=== PATIENT | male | born 1985 | race Hispanic/Latino ===

== ENCOUNTER 2017-11-22 13:32 | Emergency (ER) | payer MEDICAID, OTHER ==
--- NOTE | 2017-11-22 14:57 | RAD ---
RIGHT WRIST 3 VIEWS: Date: 11/22/17 HISTORY: 32-year-old male with history of right hand and wrist pain after tripping and falling. FINDINGS: There is an irregular, minimally displaced fracture of the distal fifth metacarpal extending into the metacarpophalangeal joint. There is also a question of a tiny chip-type fracture off the ulnar side of the hamate at the hamate fifth metacarpal joint. IMPRESSION: Irregular, possibly very slightly comminuted fracture of the distal fifth metacarpal extending into t he metacarpophalangeal joint with slight foreshortening. Questionable chip-type fracture off the ulna r side of the hamate bone which may just be related to some overlying shadows. POS: [facility]
--- NOTE | 2017-11-22 14:59 | RAD ---
RIGHT HAND 3 VIEWS: Date: 11/22/17 HISTORY: 32-year-old male with minimally displaced, possibly very slightly comminuted fracture of the distal f ifth metacarpal extending into the metacarpophalangeal joint with slight foreshortening. Small, cheryl h bony density adjacent to the radial side of the base of the proximal phalanx of the middle finger, probably a small secondary ossification center. IMPRESSION: Possibly slightly comminuted, slightly foreshortened fracture of the distal fifth metacarpal extendin g into the metacarpophalangeal joint. POS: [facility]
[2017-11-22] MEDS ORDERED: HYDROcodone/Acetaminophen 5/325 mg Tablet ONE (15:06)
== END 2017-11-22 15:20 | disposition home or self-care (01) ==
LOC: SCSER 13:32
DX: S62.336A Displaced fracture of neck of fifth metacarpal bone, right hand, initial encounter for closed fracture (principal); S62.141A Displaced fracture of body of hamate [unciform] bone, right wrist, initial encounter for closed fracture; E11.9 Type 2 diabetes mellitus without complications; F17.210 Nicotine dependence, cigarettes, uncomplicated; Z79.899 Other long term (current) drug therapy; Z79.84 Long term (current) use of oral hypoglycemic drugs; W01.0XXA Fall on same level from slipping, tripping and stumbling without subsequent striking against object, initial encounter
CPT/HCPCS: 29125